=== PATIENT | male | born 1935 | race Caucasian/White ===

== ENCOUNTER → 2016-10-13 08:07 | Outpatient (CLI) | payer MEDICARE, OTHER | END | disposition home or self-care (01) | LOC: D.CT 08:07 | DX: R94.8 Abnormal results of function studies of other organs and systems (principal) ==

== ENCOUNTER 2016-10-28 05:14 | Inpatient (IN) | payer MEDICARE, OTHER ==
[2016-10-27 11:40] LABS: APTT 30.1 SECONDS (22.8-39.4); INR 0.93 (0.85-1.17); PROTIME 12.3 SECONDS (11.6-15.0)
[2016-10-27 11:47] LABS: ALBUMIN 3.9 g/dL (3.4-5.0); ANION GAP 9.3 mmol/L (8-16); BILIRUBIN - TOTAL 0.5 mg/dL (0.2-1.3); CALCIUM 9.1 mg/dL (8.5-10.1); CARBON DIOXIDE 32.8 mmol/L (21.0-32.0); CREATININE - SERUM 1.2 mg/dL (0.6-1.3); POTASSIUM - SERUM 4.1 mmol/L (3.5-5.1); PROTEIN - SERUM 7.3 g/dL (6.4-8.2)
[2016-10-27 12:32] LABS: APPEARANCE CLEAR (CLEAR); BILIRUBIN NEGATIVE (NEGATIVE); COLOR YELLOW (YELLOW); GLUCOSE NEGATIVE (NEGATIVE); KETONE NEGATIVE (NEGATIVE); LEUKOCYTE ESTERASE TRACE (NEGATIVE); NITRITE NEGATIVE (NEGATIVE); PROTEIN NEGATIVE (NEGATIVE); SPECIFIC GRAVITY 1.025 (1.005-1.020); UROBILINOGEN NORMAL (NORMAL)
[2016-10-27 12:33] LABS: BACTERIA FEW /hpf (NONE SEEN); EPITHELIAL CELLS OCC /hpf (0-5); HYALINE CAST OCC /lpf (NONE SEEN); MUCUS >1+ /lpf (NONE SEEN); RED CELLS - URINE RARE /hpf (0-5); WHITE CELLS - URINE 0-5 /hpf (0-5)
[2016-10-28] VITALS (54 sets, daily range): BP systolic 121–152; BP diastolic 41–89; BMI 26.5; BMI 27.8
[~2016-10-28] VITALS: Ht 162.6 cm; Wt 73.9 kg
--- NOTE | ~2016-10-28 | HP ---
PATIENT: OTILIO DE LEON MEDICAL RECORD: [id number] ACCOUNT: [id number] LOCATION:[facility] : 36 ADMISSION DATE: 10/28/16 HISTORY AND PHYSICAL EXAMINATION OTILIO Avina (81yo, M) ID# [id number]. Date/Time10/20/2016 01:25QGSGU31/27/1936Service Dept.NPP_[facility] ClinicProviderEDSHIRLEY DIMAS MDInsuranceMed Primary: [place] ([place]) Insurance # : [id number] Employer Name : UNKNOWN Med Secondary: [employer] (MEDICARE SUPPLEMENT) Insurance # : [id number] Employer Name : UNKNOWN Prescription: ORX - Member is eligible. Chief Complaint Carotid stenosis referral from Dr Glass for carotid stenosis Patient's Care Team Primary Care Provider: ADI GLASS MD: [id number], [place] [address], , Painter Plate: Chriss HELLER MD: [address], [place] [address], , Vitals BP:148/76 sitting R arm 10/20/2016 03:29 pm 140/80 sitting L arm 10/20/2016 03:30 pmBP Cuff Size:adult 10/20/2016 03:29 pm adult 10/20/2016 03:30 pmHR:68,reg 10/20/2016 03:31 pmHt:5 ft 4 in 10/20/2016 03:31 pmWt:157 lbs 10/20/2016 03:31 pmNotes:dizziness most of the time, prompted Dr Glass to check carotids 10/20/2016 03:31 pmBMI:26.9 10/20/2016 03:31 pmAllergies Reviewed Allergies FLOMAXMedications Reviewed Medications Combivent Respimat 20 mcg-100 mcg/actuation solution for pcykwxucbj43/05/17 filledPRESCRIPTION TBZUYPRCRDhm-V-Thlr 100 mg capsule TK ONE C PO BID12/10/15 filledsurescriptsfluticasone 50 mcg/actuation nasal spray,ktfnsykgwp32/08/16 filledPRESCRIPTION SOLUTIONSHYDROcodone 10 mg-acetaminophen 325 mg nmevvh64/16/16 filledPRESCRIPTION SOLUTIONSHydromet 5 mg-1.5 mg/5 mL syrup TK 1 TO 2 VALENTIN PO Q 6 H PRF CNC03/21/16 filledsurescriptshydrOXYzine HCl 25 mg wbyoxk75/14/17 filledPRESCRIPTION SOLUTIONSlosartan 50 mg zhdnap30/07/17 filledPRESCRIPTION SOLUTIONSpolyethylene glycol 3350 17 gram/dose oral glphny93/26/16 filledPRESCRIPTION SOLUTIONSSymbicort 160 mcg-4.5 mcg/actuation HFA aerosol inhaler TK 2 PUFFS BY INHALATION BID09/03/16 filledPRESCRIPTION SOLUTIONStraMADol 50 mg nxhzbe28/14/16 filledPRESCRIPTION SOLUTIONStriazolam 0.25 mg tablet TK 1 T PO QHS PRN10/09/16 filledsurescriptsZostavax (PF) 19,400 unit/0.65 mL subcutaneous hwpmzqliyt01/30/17 filledPRESCRIPTION SOLUTIONSProblems Reviewed Problems Carotid artery stenosis - Onset: 10/13/2016 Family History Discussed Family History Father- SuicideMother- Natural deathSocial History Discussed Social History Cardiology HISTORY AND PHYSICAL [id number] OTILIO DE LEON Smoking Status: Former smoker High blood pressure: Y Surgical History Reviewed Surgical History disc Past Medical History Discussed Past Medical History COPD: Y Carotid Stenosis: Y Dizzy Spells: Y Hypertension: Y Pain in legs when walking: Y Shortness of Breath: Y Documents for Discussion N/A Screening None recorded. HPI Cerebral Vascular Disease Reported by patient. Quality: dizziness; blurred vision Duration: has noted for years Associated Symptoms: no headache; no nausea; no vomiting; no tinnitus; no difficulty speaking; no lethargy; no fever; no chills; no palpitations; no syncope; no loss of consciousness significant right internal carotid artery stenosis ROS Patient reports dizziness and frequent or severe headaches but reports no loss of consciousness, no weakness, no numbness, and no seizures. He reports no fever, no night sweats, no significant weight gain, no significant weight loss, and no exercise intolerance. He reports no dry eyes, no irritation, and no vision change. He reports no difficulty hearing and no e a r pain. He reports no frequent nosebleeds and no nose/sinus problems. He reports no sore throat, no bleeding gums, no snoring, no dry mouth, no mouth ulcers, no oral abnormalities, and no teeth problems. He reports no jugular vein distension and no swolle n glands. He reports no chest pain, no arm pain on exertion, no shortness of breath when walking, no shortness of breath when lying down, no palpitations, and no known heart murmur. He reports no cough, no wheezing, no shortness of breath, and no coughing u p blood. He reports no abdominal pain, no vomiting, normal appetite, no diarrhea, not vomiting blood, no nausea, and no constipation. He reports no incontinence, no difficulty urinating, no hematuria, and no increased frequency. He reports no muscle aches , no muscle weakness, no arthralgias/joint pain, no back pain, and no swelling in the extremities. He reports no abnormal mole, no jaundice, and no rashes. He reports no depression, no sleep disturbances, feeling safe in relationship, and no alcohol abuse. He reports no fatigue. He reports no swollen glands and no bruising. He reports no runny nose, no sinus pressure, no itching, no hives, and no frequent sneezing. ROS as noted in the HPI Physical Exam Patient is an 81-year-old male. Neck: Neck carotid bruits (right carotid bruit). Assessment / Plan moderately severe right internal carotid artery stenosis HISTORY AND PHYSICAL [id number] OTILIO DE LEON 1. Carotid artery stenosis I65.29: Occlusion and stenosis of unspecified carotid artery CAROTID STENOSIS: CARE INSTRUCTIONS Discussion Notes I have disc ussed the patient's disease process with him in detail as well as the alternative methods of treatment He has carotid velocities of 290 which is extremely fast. His CT angiogram to me is worse than the radiologist read he has approximately 80% nociceptive his right internal carotid artery. In view of his Doppler study and CT angiogram of think that he would benefit from right carotid endarterectomy. He is contemplating his options DIDIER DIMAS MD CC: [id number] DICTATION DATE: 10/20/16 1330 WIRE DRAWING MACHINE TENDER: DM 10/24/16 1253 PRE IN [facility] [address] [place] [address]
--- NOTE | ~2016-10-28 | OP ---
PATIENT NAME: OTILIO DE LEON MEDICAL RECORD: [id number] :36 [facility] ADMISSION DATE:10/28/16 SURGEON: RU DIMAS MD DATE OF OPERATION: 10/28/2016 SURGEON: Ru Dimas MD. ANESTHESIA: General endotracheal by Dr. Rodgers. OPERATION PERFORMED: Right carotid endarterectomy with patch angioplasty. PREOPERATIVE DIAGNOSIS: Severe right internal carotid artery stenosis. POSTOPERATIVE DIAGNOSIS: Severe right internal carotid artery stenosis. INDICATION FOR OPERATION: Severe right internal carotid artery stenosis. FINDINGS AT OPERATION: Severe right internal carotid artery stenosis with ruptured plaque. There were no EEG changes with clamping or unclamping of the carotid artery. ESTIMATED BLOOD LOSS: Less than 100 cc. DESCRIPTION OF PROCEDURE: After informed consent, adequate preoperative medication and evaluation, the patient was brought to the operating room, placed in supine position. After induction of general endotracheal anesthesia and application of appropriate monitoring devices, the right neck and chest were prepped and draped in a sterile field, utilizing Betadine scrub, alcohol and Betadine solution. A Betadine-impregnated drape was also used. An oblique incision was made in the skin crease. Dissection carried down the fascia. Hemostasis maintained with electrocautery. Facial vein was identified and divided. Utilizing sharp dissection, the common carotid, internal and external carotid arteries were dissected free from surrounding structures, protecting the neurological structures. The patient was given a calculated dose of heparin, after 3 minutes, clamps were applied and after 2 minutes, no EEG changes. The arteriotomy was made and extended with Aaron scissors. Artery underwent endarterectomy sharply. Artery underwent extensive debridement and irrigation. Utilizing a vascular patch from [employer] and a running 7-0 Prolene suture, the arteriotomy was closed with a patch angioplasty technique. All maneuvers to remove trapped air were performed. The clamps were removed sequentially. There were no EEG changes. The patient was given a calculated dose of protamine to reverse the heparin. Hemostasis was achieved and a #7 Bill-Eaton drain was left in the depths of wound and brought through the base of the neck. Neck was again irrigated. Instrument count and sponge count were correct times 2. Neck was closed in layers utilizing 3-0 Vicryl on the platysma, 5-0 subcuticular Monocryl on the skin. Sterile dressings were applied. The patient tolerated the procedure well and transferred to CV ICU in satisfactory condition. TRANSINT:[id number] Voice Confirmation ID: [id number] DOCUMENT ID: [id number] OPERATIVE REPORT [id number] OTILIO DE LEON EDWARD MD CC: [id number] DICTATION DATE: 10/28/16 105 SUGAR MIXER: 10/28/16 1235 [place] [address]
[~2016-10-28 05:14] MED LIST: ASPIRIN EC81 M1 PO; COMBIVENT RESPIM4 GM INH; COZAAR50 MG PO
[2016-10-28 06:25] LABS: BASOPHILS 0.3 % (0-2); EOSINOPHILS 3.5 % (0-7); HEMATOCRIT 33.6 % (42.0-54.0); HEMOGLOBIN 11.9 g/dL (13.5-17.5); IMMATURE GRANULOCYTES 0.2 % (0-5); LYMPHOCYTES 28.2 % (15-50); MCHC 35.4 g/dL (31.0-37.0); MCV 87.5 fL (80.0-100.0); MEAN PLATELET VOLUME 8.9 fL (7.4-10.4); MONOCYTES 10.2 % (2-11); NEUTROPHILS 57.6 % (40-80); PLATELET COUNT 204 10x3/uL (130-400); RBC 3.84 10x6/uL (4.20-6.10); RDW 13.7 % (11.5-14.5); WBC 5.8 10x3/uL (4.8-10.8)
--- NOTE | 2016-10-28 10:55 | NUR ---
PT ARRIVED BY BED TO ROOM. SWITCHED OVER TO CVICU MONITORS. RIGHT RADIAL A-LINE WITH GOOD WAVE FORM NOTED. PT ON 10L SIMPLE MASK. FOLLOWS COMMANDS.
--- NOTE | 2016-10-28 11:20 | NUR ---
PT'S FAMILY AT BEDSIDE AND DR. DIMAS UPDATED THEM ON PT'S STATUS. NO OTHER NEEDS AT THIS TIME.
--- NOTE | 2016-10-28 13:15 | NUR ---
PT REPOSITIONED IN BED. C/O MATTRESS BEING UNCOMFORTABLE. CALL LIGHT WITHIN REACH.
--- NOTE | 2016-10-28 14:05 | NUR ---
* Is the patient Alert and Oriented? Yes 0 * How many steps to enter\exit or inside your home? 0 0 * PCP Dr. Ward 0 * Pharmacy [facility] [address] 0 * Preadmission Environment Home Alone 0 * ADLs Independent 0 * List name and contact numbers for known caregivers / representatives who currently or will assist patient after discharge: Sami Garcia [phone] Friend - Migdalia Haque [phone] 0 * Additional services required to return to the preadmission environment? No 0 * Can the patient safely return to the preadmission environment? Yes 0 * Has this patient been hospitalized within the prior 30 days at any hospital? No Patient Name: OTILIO GARCIA Admission Status: Elective Accout number: [id number] Admission Date: 10-28-2016 : 1935 Admission Diagnosis: Attending: JOE Current LOS: 1 Anticipated DC Date: 10-30-2016 Planned Disposition: Home Primary Insurance: MEDICARE A & B Discharge Planning Comments: CM met with patient to assess dc plans/needs. Patient states he lives alone & is independent with all ADL's & AIDL's. He states his daughter, Emily, will be staying with him for about 3 weeks when discharged home. He states sami Severino & lady friend, Migdalia Haque, will also be available to help with any needs. CM will follow & assist as needed. Human Services Supervisor: Ginny Rankin
--- NOTE | 2016-10-28 15:30 | NUR ---
PT REPOSITIONED IN BED. AGGITATED WITH LINES AND TUBING. ATTEMPTED TO REPOSITION OUT OF THE WAY. CALL LIGHT WITHIN REACH.
--- NOTE | 2016-10-28 17:00 | NUR ---
EGG CRATE MATTRESS PLACED ON PT'S BED DUE TO PT C/O VERY UNCOMFORTABLE MATTRESS. REPOSITIONED FOR COMFORT. PT REPORTS THAT THE BED FEELS MORE COMFORTABLE. WILL CONTINUE TO TITRATE NITRO TO KEEP SBP WITHIN PARAMETERS.
--- NOTE | 2016-10-28 19:10 | NUR ---
Received patient resting in bed with eyes open, assessment completed per flowsheet. Patient AO x4, calm and cooperative. Eyes PERRLA @ 4mm with brisk response, sclera is white. R Neck anterior incision site dressing CDI, no bleeding or swelling noted. Patient reports no difficulty swallowing, taking small sips of water without issue. S1/S2 noted NSR on telemetry with HR 90, rhythmic and regular. Breathing is even and unlabored on 2L via NC, lung sounds clear bilateral upper and mid with diminished lower. Abdomen is soft and round with bowel sounds active x4, non-tender. Criticore caraballo in use, clear yellow urine noted in collection. R Radial A-line noted with wrist protector in place, zeroed with good waveform. Skin is warm to touch with good sensation, cap refill < 3 sec. Full ROM all extremities with remaining pulses palpable and cap refill < 3 sec. SHRUTHI drain x1 noted R upper chest with small serosanguinous drainage, dressing CDI with no bleeding and site soft to palpation. L subclavian CVL noted with dressing intact, patent with Plasmalyte @ 30ml/hr / Nitro @ 18ml/hr / Cefuroxime @ 11.4ml/hr. Patient c/o headache 08/23, repositioned and will provide PRN medication when available. No further needs at this time, all VSS and will continue to monitor.
--- NOTE | 2016-10-28 21:00 | NUR ---
No visitors at this time, patient resting in bed with eyes open watching TV. R neck incision dresssing CDI, no bleeding/swelling noted. Patient reports no difficulty breathing or swallowing. No further needs at this time, all VSS and will continue to monitor.
--- NOTE | 2016-10-28 23:10 | NUR ---
Reassessment completed per flowsheet, patient resting in bed with eyes closed. R neck incision dressing CDI, no bleeding or swelling noted. Patient reports no difficulty breathing or swallowing, "just want to sleep". S1/S2 noted NSR on telemetry with HR 86, rhythmic and regular. Breathing is slightly shallow on 2L via NC with O2 sat 93%, lung sounds clear bilateral upper and mid with diminished lower. R radial A-line zeroed with good waveform, wrist protector in use with extremity warm and good sensation. L upper and bilateral lower extremity pulses palpable with cap refill < 3 sec. A-line highly positional with patient complaining about required readjustments. R upper chest SHRUTHI drain x1 dressing CDI, small serosanguinous drainage noted with drain complressed. No further needs at this time, all VSS and will continue to monitor.
[2016-10-29] VITALS (59 sets, daily range): BP systolic 111–146; BP diastolic 45–78; Ht 162.6 cm; Wt 73.9 kg
--- NOTE | 2016-10-29 01:00 | NUR ---
Patient resting in bed with eyes closed, patient awake c/o headache. PRN medication given, and will reassess. Patient SBP maintaining high 130's, increasing Nitro per protocol to lower, will continue to monitor.
--- NOTE | 2016-10-29 02:30 | NUR ---
Patient unresponsive to Nitro @ 30ml/hr with SBP maintaining 140, Nitro D/C. Cleviprex infusion started @ 2ml/hr and will adjust per protocol. All VSS and will continue to monitor.
--- NOTE | 2016-10-29 03:10 | NUR ---
Reassessment completed per flowsheet, patient resting in bed with eyes closed. R neck incision dressing CDI with no bleeding/drainage noted, patient reports no difficulty swallowing or breathing. S1/S2 noted NSR on telemetry with HR 79, rhythmic and regular. Breathing is slightly shallow and unlabored on 2L via NC, O2 sat 93%. R upper chest SHRUTHI drain x1 dressing CDI, small serosanguinous drainage noted. R radial A-line dressing CDI with wrist protector in place, good sensation with extremity warm to touch. All pulses palpable with cap refill < 3sec. Patient c/o headache pain 2/10, repositioned and will provide PRN medication when available. No further needs at this time, all VSS and will continue to monitor.
--- NOTE | 2016-10-29 05:00 | NUR ---
Patient resting in bed with eyes closed, breathing is even and unlabored on 2L via NC. R neck incision dressing CDI, no bleeding/drainage noted with no difficulty breathing or swallowing reported. R upper chest SHRUTHI drain x1 dressing CDI, site soft to palpation with no bleeding/drainage noted. No new drainage seen in SHRUTHI after emptying. No further needs at this time, all VSS and will continue to monitor.
--- NOTE | 2016-10-29 07:20 | NUR ---
RECEIVED PT FOR CARE. PT RESTING IN BED WITH EYES OPEN. CALL LIGHT WITHIN REACH. ASSESSMENT COMPLETED.
--- NOTE | 2016-10-29 10:00 | NUR ---
RIGHT UPPER CHEST SHRUTHI DRAIN D/C'D PER DR. DIMAS ORDERS. RIGHT RADIAL A-LINE D/C'D WITH CATH TIP INTACT. POOLE CATH D/C'D WITH CATH TIP INTACT. PT TOLERATED WELL. PT ASSISTED UP TO CHAIR. VERY MINIMAL ASSISTANCE NEEDED. CALL LIGHT WITHIN REACH.
--- NOTE | 2016-10-29 10:51 | NUR ---
PT AMBULATING WITH PHYSICAL THERAPY. STEADY GAIT NOTED. NO ASSIST NEEDED.
--- NOTE | 2016-10-29 13:20 | NUR ---
PT'S FAMILY AT BEDSIDE. UPDATED ON PT'S STATUS. PT STILL SITTING UP IN CHAIR. NO NEEDS AT THIS TIME. VSS.
[2016-10-29] MEDS ORDERED: PLAVIX75 MG PO (15:17)
--- NOTE | 2016-10-29 15:30 | NUR ---
LEFT DLSC D/C'D WITH CATH TIP INTACT. PT TOLERATED WELL. DRESSING APPLIED. DISCUSSED DICHARGE INSTRUCTIONS WITH PT AND PT'S DAUGHTER. THEY VOICED UNDERSTANDING. ROOPA SALAZAR RN ALSO SPOKE WITH PT AND PT'S DAUGHTER REGARDING DISCHARGE INSTRUCTIONS.
--- NOTE | 2016-10-29 16:00 | NUR ---
PT ESCORTED TO VEHICLE. REFUSED WHEELCHAIR. ALL DISCHARGE PAPERWORK IN HAND. PT REPORTS THAT HE HAS ALL BELONGING WITH HIM. NO S/S OF DISTRESS NOTED.
== END 2016-10-29 16:00 | disposition home or self-care (01) | DRG 39 ==
LOC: D.SDCHOLD 05:14 → D.CVICU 05:14 → D.SDCHOLD 07:30 → D.CVICU 09:25
PROVIDERS: Anesthesiology; ADMIT Internal Medicine Cardiovascular Disease
PROC: 03UK0JZ Supplement Right Internal Carotid Artery with Synthetic Substitute, Open Approach (ICD-10-PCS; 2016-10-28)
PROC: 03CK0ZZ Extirpation of Matter from Right Internal Carotid Artery, Open Approach (ICD-10-PCS; principal; 2016-10-28 07:30)
DX: I65.21 Occlusion and stenosis of right carotid artery (principal); J44.9 Chronic obstructive pulmonary disease, unspecified; I10 Essential (primary) hypertension

== ENCOUNTER 2016-11-07 15:44 | Emergency (ER) | payer MEDICARE, OTHER ==
[2016-10-29 13:42] VITALS: BMI 27.9
[~2016-11-07 15:44] MED LIST changes: +PLAVIX75 MG PO
== END 2016-11-07 17:30 | disposition home or self-care (01) ==
LOC: D.ER 15:44
DX: H81.10 Benign paroxysmal vertigo, unspecified ear (principal)

== ENCOUNTER 2016-11-09 19:12 | Inpatient (IN) | payer MEDICARE, OTHER ==
[~2016-11-09] VITALS: Ht 165.1 cm; Wt 72.6 kg
[2016-11-09 20:00] LABS: BASOPHILS 0.5 % (0-2); EOSINOPHILS 4.9 % (0-7); HEMATOCRIT 32.8 % (42.0-54.0); IMMATURE GRANULOCYTES 0.3 % (0-5); LYMPHOCYTES 31.9 % (15-50); MCHC 33.5 g/dL (31.0-37.0); MCV 89.4 fL (80.0-100.0); MEAN PLATELET VOLUME 8.9 fL (7.4-10.4); MONOCYTES 7.6 % (2-11); NEUTROPHILS 54.8 % (40-80); PLATELET COUNT 327 10x3/uL (130-400); RBC 3.67 10x6/uL (4.20-6.10); RDW 13.3 % (11.5-14.5)
[2016-11-09 20:13] LABS: APPEARANCE CLEAR (CLEAR); BILIRUBIN NEGATIVE (NEGATIVE); COLOR YELLOW (YELLOW); GLUCOSE NEGATIVE (NEGATIVE); KETONE NEGATIVE (NEGATIVE); LEUKOCYTE ESTERASE NEGATIVE (NEGATIVE); NITRITE NEGATIVE (NEGATIVE); PROTEIN NEGATIVE (NEGATIVE); UROBILINOGEN NORMAL (NORMAL)
[2016-11-09 20:26] LABS: ALBUMIN 3.4 g/dL (3.4-5.0); ALKALINE PHOSPHATASE 54 U/L (46-116); ALT (SGPT) 41 U/L (10-68); CALC OSMOLALITY 288 mosm/kg (275-300); CALCIUM 9.3 mg/dL (8.5-10.1); CARBON DIOXIDE 28.3 mmol/L (21.0-32.0); CHLORIDE - SERUM 108 mmol/L (98-107); CREATININE - SERUM 1.1 mg/dL (0.6-1.3); GLUCOSE 84 mg/dL (74-106); POTASSIUM - SERUM 4.1 mmol/L (3.5-5.1); PROTEIN - SERUM 6.9 g/dL (6.4-8.2); SODIUM 144 mmol/L (136-145); UREA NITROGEN 21 mg/dL (7-18); eGFR NON AFRICAN AMERICAN 68 mL/min (90-120)
[2016-11-09 20:30] LABS: CREATINE KINASE 41 UL (21-232); TROPONIN-I < 0.017 ng/mL (0.000-0.060)
--- NOTE | 2016-11-09 23:22 | NUR ---
RECIVED REPORT FROM M[facility] IN ER. PT C/O WEST, DIZZINESS AND BLURRED VISION. PT HAD CAROTOID SURGERY ON OCT [address] DIMAS AND HAS HAD SYMPTOMS SINCE, TODAYS SYMPTOMS SEEM WORSE, CT NORMAL, DULL ACH ON RT SIDE OF SCALP, PT HAS HX OF HTN IV IN LT AC , SL AT THIS TIME. PT LIVES ALONE, SON AND DIL CHECK IN PERIODICALLY. PENDING PT ARRIVAL
[2016-11-10] VITALS (8 sets, daily range): BP systolic 123–181; BP diastolic 59–86; Ht 165.1 cm; Wt 72.6 kg
--- NOTE | 2016-11-10 07:05 | NUR ---
PATIENT RECEIVED IN LOW SHIELDS POSITION. NO SIGNS OF DISTRESS NOTED. DENIES NEEDS. SIDE RAILS UP X2. BED IN LOW POSITION. CALL LIGHT IN REACH.
--- NOTE | 2016-11-10 08:09 | NUR ---
ALERT IN BED WITH FAMILY AT BEDSIDE. NO SIGNS OF DISTRESS NOTED. SCHEDULED MEDICATION ADMINISTERED. DENIES NEEDS. BED IN LOW POSITION. CALL LIGHT IN REACH.
--- NOTE | 2016-11-10 09:52 | NUR ---
PATIENT IN RIGHT LATERAL POSITION RESTING WITH EYES CLOSED. RESPIRATIONS EVEN AND UNLABORED. WAKES EASY. SCHEDULED MEDICATION ADMINISTERED. SIDE RAILS UP X2. BED IN LOW POSITION. CALL LIGHT IN REACH.
[2016-11-10 09:53] LABS: BASOPHILS 0.6 % (0-2); EOSINOPHILS 4.3 % (0-7); HEMATOCRIT 32.6 % (42.0-54.0); HEMOGLOBIN 11.1 g/dL (13.5-17.5); IMMATURE GRANULOCYTES 0.3 % (0-5); LYMPHOCYTES 26.8 % (15-50); MCH 30.3 pg (26.0-34.0); MCV 89.1 fL (80.0-100.0); MEAN PLATELET VOLUME 8.8 fL (7.4-10.4); MONOCYTES 7.4 % (2-11); NEUTROPHILS 60.6 % (40-80); PLATELET COUNT 304 10x3/uL (130-400); RBC 3.66 10x6/uL (4.20-6.10); RDW 13.5 % (11.5-14.5); WBC 6.5 10x3/uL (4.8-10.8)
[2016-11-10 10:09] LABS: BILIRUBIN - TOTAL 0.2 mg/dL (0.2-1.3); CALCIUM 8.8 mg/dL (8.5-10.1); CARBON DIOXIDE 26.9 mmol/L (21.0-32.0); CREATININE - SERUM 1.2 mg/dL (0.6-1.3); POTASSIUM - SERUM 3.9 mmol/L (3.5-5.1); PROTEIN - SERUM 6.2 g/dL (6.4-8.2)
--- NOTE | 2016-11-10 11:55 | NUR ---
SCD ON BILATERALLY
--- NOTE | 2016-11-10 12:00 | NUR ---
PATIENT OFF FLOOR TO MRI VIA WHEELCHAIR
--- NOTE | 2016-11-10 13:00 | NUR ---
BACK TO ROOM FROM MRI VIA WHEELCHAIR
--- NOTE | 2016-11-10 16:45 | NUR ---
PATIENT SITTING UP ON SIDE OF BED ALERT. NO SIGNS OF DISTRESS NOTED. WANTING TO GO HOME. FAMILY AT BEDSIDE. CALL LIGHT IN REACH.
--- NOTE | 2016-11-10 20:00 | NUR ---
ASSESSMENT PER FLOWSHEET NEURO CHECKS DONE NO NEURO DEFICITS. DENIES NUMBNESS OR TINGLING DENIES DIZZINESS. 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 SCD'S ON. SR UP X2 CALL LIGHT WITHIN REACH.
--- NOTE | 2016-11-10 21:00 | NUR ---
WATCHING TV DENIES NEEDS.
--- NOTE | 2016-11-10 23:01 | NUR ---
NEURO CHECKS DONE REMAINS ALERT AND ORIENTED X3 TEJEDA EQUALLY PASTE UP COPY CAMERA OPERATOR STRONG AND EQUAL SPEECH CLEAR.
--- NOTE | 2016-11-10 23:02 | NUR ---
AWAKE WATCHING TV DENIES NEEDS.
--- NOTE | 2016-11-11 | NUR ---
EYES CLOSED RESPIRATIONS WITH EASE AND UNLABORED.
--- NOTE | 2016-11-11 01:00 | NUR ---
NEURO CHECKS DONE REMAINS ALERT/ORIENTED NO DEFICITS
[2016-11-11 03:15] VITALS: BP 159/57
--- NOTE | 2016-11-11 03:58 | NUR ---
EYES CLOSED RESPIRATIONS WITH EASE AND UNLABORED. NO NEURO DEFICITS.
[2016-11-11 06:44] LABS: BASOPHILS 0.5 % (0-2); EOSINOPHILS 2.9 % (0-7); HEMATOCRIT 34.3 % (42.0-54.0); HEMOGLOBIN 11.7 g/dL (13.5-17.5); IMMATURE GRANULOCYTES 0.2 % (0-5); LYMPHOCYTES 22.7 % (15-50); MCH 30.2 pg (26.0-34.0); MCHC 34.1 g/dL (31.0-37.0); MCV 88.6 fL (80.0-100.0); MEAN PLATELET VOLUME 8.8 fL (7.4-10.4); MONOCYTES 6.6 % (2-11); NEUTROPHILS 67.1 % (40-80); PLATELET COUNT 329 10x3/uL (130-400); RBC 3.87 10x6/uL (4.20-6.10); RDW 13.2 % (11.5-14.5)
[2016-11-11 06:51] LABS: WBC 8.3 10x3/uL (4.8-10.8)
--- NOTE | 2016-11-11 07:30 | NUR ---
PATIENT RECEIVED IN LEFT LATERAL POSITION ALERT AND RESTING QUIETLY. RESPIRATIONS EVEN AND UNLABORED. C/O HEADACHE 09/22. SIDE RAILS UP X2. BED IN LOW POSITION. CALL LIGHT IN REACH.
[2016-11-11 07:37] LABS: ALBUMIN 3.4 g/dL (3.4-5.0); ANION GAP 13.3 mmol/L (8-16); BILIRUBIN - TOTAL 0.3 mg/dL (0.2-1.3); CALCIUM 8.8 mg/dL (8.5-10.1); CARBON DIOXIDE 28.1 mmol/L (21.0-32.0); CREATININE - SERUM 1.1 mg/dL (0.6-1.3); POTASSIUM - SERUM 4.4 mmol/L (3.5-5.1); PROTEIN - SERUM 6.2 g/dL (6.4-8.2)
[2016-11-11 08:58] VITALS: BP 181/71
[2016-11-11] MEDS ORDERED: ACETAMINOPHEN325 MG PO (11:58)
--- NOTE | 2016-11-11 12:30 | NUR ---
PATIENT SITTING UP ON SIDE OF BED ALERT. IV TO LEFT AC D/C WITH CATH TIP INTACT. SITE COVERED WITH GAUZE AND BANDAID.
--- NOTE | 2016-11-11 13:05 | NUR ---
D/C TEACHING PROVIDED TO PATIENT AND . STATES UNDERSTANDING. QUESTIONS ANSWERED.
[2016-11-11 13:07] VITALS: BP 175/68
--- NOTE | 2016-11-11 13:09 | NUR ---
PATIENT D/C HOME WITH FAMILY. TRANSFERRED DOWNSTAIRS VIA WHEELCHAIR WITH VOLUNTEER.
== END 2016-11-11 13:10 | disposition home or self-care (01) | DRG 103 ==
LOC: D.ER 19:12 → D.MS 22:20 → OBSVTIME 22:20 → D.MS 11-10 16:36 → D.SDCHOLD 11-10 17:17 → D.MS 11-10 17:19
PROVIDERS: Nurse Practitioner Family; ADMIT Family Medicine
DX: R51 Headache (principal); R55 Syncope and collapse; R42 Dizziness and giddiness; J44.9 Chronic obstructive pulmonary disease, unspecified; I65.21 Occlusion and stenosis of right carotid artery; Z72.89 Other problems related to lifestyle; I10 Essential (primary) hypertension

== ENCOUNTER → 2018-05-05 14:26 | Outpatient (CLI) | payer MEDICARE, OTHER ==
[2016-11-10 14:26] VITALS: BMI 26.6
[~2018-05-05 14:26] MED LIST changes: +ACETAMINOPHEN325 MG PO
== END | disposition home or self-care (01) ==
LOC: D.US 14:26
DX: I65.23 Occlusion and stenosis of bilateral carotid arteries (principal)

== ENCOUNTER → 2018-05-17 14:25 | Outpatient (CLI) | payer MEDICARE, OTHER ==
[2016-11-10 14:26] VITALS: BMI 26.6
== END | disposition home or self-care (01) ==
LOC: D.US 14:25
PROVIDERS: ATTEND Internal Medicine Cardiovascular Disease
DX: I70.213 Atherosclerosis of native arteries of extremities with intermittent claudication, bilateral legs (principal)

== ENCOUNTER → 2018-06-14 13:41 | Outpatient (CLI) | payer MEDICARE, OTHER ==
[2016-11-10 14:26] VITALS: BMI 26.6
[~2018-06-14 13:41] MED LIST changes: +MECLIZINE HCL25 MG PO
== END | disposition home or self-care (01) ==
LOC: D.CT 13:41
PROVIDERS: ATTEND Internal Medicine Cardiovascular Disease
DX: I73.9 Peripheral vascular disease, unspecified (principal)

== ENCOUNTER 2018-06-17 06:45 | Day surgery (SDC) | payer MEDICARE, OTHER ==
[2018-06-16 10:10] LABS: BASOPHILS 0.5 % (0-2); EOSINOPHILS 3.2 % (0-7); HEMATOCRIT 35.2 % (42.0-54.0); IMMATURE GRANULOCYTES 0.2 % (0-5); LYMPHOCYTES 22.8 % (15-50); MCH 28.6 pg (26.0-34.0); MCHC 34.1 g/dL (31.0-37.0); MEAN PLATELET VOLUME 9.5 fL (7.4-10.4); MONOCYTES 7.6 % (2-11); NEUTROPHILS 65.7 % (40-80); RBC 4.19 10x6/uL (4.20-6.10); RDW 14.6 % (11.5-14.5); WBC 6.6 10x3/uL (4.8-10.8)
[2018-06-16 10:26] LABS: ANION GAP 12.6 mmol/L (8-16); CALCIUM 8.9 mg/dL (8.5-10.1); CARBON DIOXIDE 28.8 mmol/L (21.0-32.0); CREATININE - SERUM 1.4 mg/dL (0.6-1.3); POTASSIUM - SERUM 4.4 mmol/L (3.5-5.1)
[2018-06-16 10:45] LABS: PLATELET COUNT 262 10x3/uL (130-400)
[~2018-06-17] VITALS: Ht 162.6 cm; Wt 74.8 kg
[~2018-06-17 06:45] MED LIST changes: -MECLIZINE HCL25 MG PO
[2018-06-17 07:56] VITALS: BP 185/73; Ht 162.6 cm; Wt 74.8 kg
--- NOTE | 2018-06-17 10:25 | OP ---
PATIENT NAME: OTILIO DE LEON MEDICAL RECORD: [id number] :37 LOCATION:[facility] ADMISSION DATE: SURGEON: AMI SRIVASTAVA MD DATE OF OPERATION: 06/17/2018 SURGEON: Ami Srivastava MD HUMAN SERVICES WORKER: AP by Balwinder Kohler CRNA. DIAGNOSES: Elevated PSA of 7.59 on 04/30/2017 and bladder outlet obstruction. PROCEDURES: Cystoscopy, transrectal ultrasound, and prostate biopsy. FINDINGS: On cystoscopy, bilateral lateral lobe hyperplasia with a small median lobe. Single ureteral orifices bilaterally. Moderately trabeculated bladder without bladder tumors. On transrectal ultrasound, he has a 24 gram prostate. There is a right hypoechoic mid prostatic region. SPECIMENS: Prostate biopsy cores. BLOOD LOSS: Minimal. CLINICAL HISTORY: This is an 82-year-old male who comes from [facility]. He was referred for an elevated PSA of 7.59. He has some symptoms of BPH including nocturia, urgency, postvoid dribbling. He has not been on any medications for BPH. He on rectal examination had a large feeling prostate, which did not have any nodules in it. He comes today to have a prostate biopsy performed. I will also perform cystoscopy to check for prostatic obstruction. He is not allergic to any medications. He was given Ancef diamond picker to the OR. DESCRIPTION OF PROCEDURE: The patient was given IV sedation. He was then placed into dorsal lithotomy position and prepped and draped. A 17-Ukrainian cystoscope with 30-degree lens was used for cystoscopy. The findings are as outlined above. The bladder was then emptied through the cystoscope sheath and then the scope was removed entirely. We then introduced the transrectal ultrasound probe. Prostate size measurements were obtained and his prostate was estimated to be 24 grams. 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 Sextant biopsies were obtained with at least 3 cores from each sextant. On the right mid portion, there was a hypoechoic area and I made sure at least one of the needle passes went through this hypoechoic area. Once all the specimens were obtained, the procedure was terminated. The patient was awakened and brought back to the preoperative holding area. I will see him in followup next week to go over his findings with him. TRANSINT:[id number] Voice Confirmation ID: [id number] DOCUMENT ID: [id number] OPERATIVE REPORT [id number] OTILIO DE LEON ROBERT S MD at 1025 CC: [id number] DICTATION DATE: 06/17/18934 EXHIBITIONS CURATOR: 06/17/18 1014 REG [facility] [address] [id number]
[2018-06-17] MEDS ORDERED: MECLIZINE HCL25 MG PO (16:32)
== END 2018-06-17 10:40 | disposition home or self-care (01) ==
LOC: D.OPS 06:45 → D.PAN 08:30 → D.OPS 08:30 → D.PAN 09:20 → D.OPS 09:20 → D.PAN 10:00 → D.OPS 10:00
PROVIDERS: Anesthesiology; ATTEND Urology
DX: N40.1 Benign prostatic hyperplasia with lower urinary tract symptoms (principal); N13.8 Other obstructive and reflux uropathy; R35.1 Nocturia; R39.15 Urgency of urination; N32.89 Other specified disorders of bladder; Z01.812 Encounter for preprocedural laboratory examination

== ENCOUNTER 2018-06-17 16:07 | Emergency (ER) | payer MEDICARE, OTHER ==
[~2018-06-17] VITALS: Ht 162.6 cm; Wt 72.7 kg
[2018-06-17 16:30] VITALS: Ht 162.6 cm; Wt 72.7 kg
[2018-06-17] MEDS ORDERED: MECLIZINE HCL25 MG PO (16:32)
[2018-06-17 21:49] VITALS: BP 184/70
== END 2018-06-17 21:50 | disposition home or self-care (01) ==
LOC: D.ER 16:07
DX: R33.9 Retention of urine, unspecified (principal); Z98.890 Other specified postprocedural states

== ENCOUNTER 2018-08-31 07:37 | Day surgery (SDC) | payer MEDICARE, OTHER ==
[2018-08-30 08:59] LABS: BASOPHILS 0.3 % (0-2); EOSINOPHILS 3.6 % (0-7); HEMATOCRIT 34.6 % (42.0-54.0); HEMOGLOBIN 11.6 g/dL (13.5-17.5); IMMATURE GRANULOCYTES 0.2 % (0-5); LYMPHOCYTES 21.4 % (15-50); MCH 28.7 pg (26.0-34.0); MCHC 33.5 g/dL (31.0-37.0); MCV 85.6 fL (80.0-100.0); MEAN PLATELET VOLUME 8.7 fL (7.4-10.4); MONOCYTES 6.4 % (2-11); NEUTROPHILS 68.1 % (40-80); RBC 4.04 10x6/uL (4.20-6.10); RDW 14.4 % (11.5-14.5); WBC 6.4 10x3/uL (4.8-10.8)
[2018-08-30 09:11] LABS: ANION GAP 11.9 mmol/L (8-16); CARBON DIOXIDE 28.2 mmol/L (21.0-32.0); CREATININE - SERUM 1.1 mg/dL (0.6-1.3); POTASSIUM - SERUM 4.1 mmol/L (3.5-5.1)
[2018-08-30 09:22] LABS: PLATELET COUNT 189 10x3/uL (130-400)
[~2018-08-31] VITALS: Ht 162.6 cm; Wt 72.6 kg
[~2018-08-31 07:37] MED LIST changes: +HALCION0.25 MG PO; +MECLIZINE HCL25 MG PO
[2018-08-31 08:12] VITALS: BP 128/63; Ht 162.6 cm; Wt 72.6 kg
== END 2018-08-31 11:44 | disposition home or self-care (01) ==
LOC: D.OPS 07:37 → D.PAN 10:45 → D.OPS 11:44 → D.PAN 12:30 → D.OPS 12:30
PROVIDERS: Anesthesiology; ATTEND Urology
DX: N40.1 Benign prostatic hyperplasia with lower urinary tract symptoms (principal); N13.8 Other obstructive and reflux uropathy; Z53.9 Procedure and treatment not carried out, unspecified reason; Z01.812 Encounter for preprocedural laboratory examination

== ENCOUNTER → 2020-05-29 10:14 | Outpatient (CLI) | payer MEDICARE, OTHER ==
[2018-08-31 08:12] VITALS: BMI 27.5
== END | disposition home or self-care (01) ==
LOC: D.US 10:14
PROVIDERS: ATTEND Thoracic Surgery (Cardiothoracic Vascular Surgery)
DX: I65.23 Occlusion and stenosis of bilateral carotid arteries (principal)